=== PATIENT | male | born 2000 | race Caucasian/White ===

== ENCOUNTER 2019-02-10 19:41 | Emergency (ER) | payer MEDICAID, OTHER ==
[~2019-02-10] VITALS: Ht 195.6 cm; Wt 84.5 kg
[~2019-02-10 19:41] MED LIST: ARIP10TA33; DEXT10TA7; LORA10CA; SEROQUIL; [UNRECOGNIZED DRUG - OTHER]
[2019-02-10 19:49] VITALS: BP 124/75
[2019-02-10] MEDS ORDERED: DIAZEPAM 5 MG TABLET PO ONE (20:30)
[2019-02-10] MEDS ORDERED: KETOROLAC 30 MG/1 ML IM ONE (20:30)
[2019-02-10] MEDS ORDERED: KETOROLAC 30 MG/1 ML ONE (20:33)
[2019-02-10] MEDS ORDERED: DIAZEPAM 5 MG TABLET ONE (20:33)
== END 2019-02-10 21:04 | disposition home or self-care (01) ==
LOC: ED 20:58
DX: S39.012A Strain of muscle, fascia and tendon of lower back, initial encounter (principal); S30.0XXA Contusion of lower back and pelvis, initial encounter; S30.1XXA Contusion of abdominal wall, initial encounter; F17.200 Nicotine dependence, unspecified, uncomplicated; Y04.0XXA Assault by unarmed brawl or fight, initial encounter; Y93.89 Activity, other specified; Y92.89 Other specified places as the place of occurrence of the external cause; Y99.8 Other external cause status
CPT/HCPCS: 72110; 96372; 99283; J1885

== ENCOUNTER 2021-02-20 04:47 | Emergency (ER) | payer SELFPAY ==
[~2021-02-20] VITALS: Ht 195.6 cm; Wt 80.0 kg
[2021-02-20 04:51] VITALS: BP 128/78
--- NOTE | 2021-02-20 05:10 | NUR ---
PT PRESENTS TO THE ED WITH HEADACH, N/V/D, AND DRY COUGH. PT STATES HE HAD HIS SECOND COVID VACCINE 2 WEEKS AGO. AT THAT TIME THESE SYMPTOMS DEVELOPED ALONG WITH FEVERS. PT STATED HE TESTED POSITIVE FOR COVID ON 02/17/21.
[2021-02-20] MEDS ORDERED: PROMETHAZINE 25 MG/ML, 1ML IM ONE (06:00)
[2021-02-20] MEDS ORDERED: KETOROLAC 60 MG/2 ML IM ONE (06:00)
[2021-02-20] MEDS ORDERED: KETOROLAC 60 MG/2 ML ONE (06:06)
[2021-02-20] MEDS ORDERED: PROMETHAZINE 25 MG/ML, 1ML ONE (06:06)
--- NOTE | 2021-02-20 06:23 | NUR ---
PT RESTING ON GURNEY, DENIES NEEDS AT THIS TIME.
--- NOTE | 2021-02-20 06:28 | NUR ---
Patient given discharge instructions and they have confirmed that they understand the instructions. Patient ambulatory with steady gait.
== END 2021-02-20 06:30 | disposition home or self-care (01) ==
LOC: ED 06:18
DX: U07.1 COVID-19 (principal); J06.9 Acute upper respiratory infection, unspecified; R51.9 Headache, unspecified; R11.2 Nausea with vomiting, unspecified; F17.200 Nicotine dependence, unspecified, uncomplicated
CPT/HCPCS: 96372; 99284; J1885; J2550

== ENCOUNTER 2021-03-07 23:35 | Emergency (ER) | payer SELFPAY ==
[~2021-03-07] VITALS: Ht 195.6 cm; Wt 78.0 kg
--- NOTE | 2021-03-07 23:37 | NUR ---
NOT IN LOBBY WHEN CALLED
[2021-03-07 23:38] VITALS: BP 128/74
--- NOTE | 2021-03-08 01:18 | NUR ---
pt to room from lobby
[2021-03-08] MEDS ORDERED: HYDROcodone/APAP 5/325 TABLET PO ONE (01:30)
[2021-03-08] MEDS ORDERED: HYDROcodone/APAP 5/325 TABLET ONE (01:56)
== END 2021-03-08 02:18 | disposition home or self-care (01) ==
LOC: ED 23:40
DX: S62.616A Displaced fracture of proximal phalanx of right little finger, initial encounter for closed fracture (principal); F17.210 Nicotine dependence, cigarettes, uncomplicated; W22.8XXA Striking against or struck by other objects, initial encounter; Y93.89 Activity, other specified; Y92.410 Unspecified street and highway as the place of occurrence of the external cause; Y99.8 Other external cause status
CPT/HCPCS: 29125; 99283

== ENCOUNTER 2021-03-10 09:25 | Emergency (ER) | payer SELFPAY ==
[~2021-03-10] VITALS: Ht 195.6 cm; Wt 76.8 kg
[2021-03-10 09:27] VITALS: BP 130/70
== END 2021-03-10 10:52 | disposition home or self-care (01) ==
LOC: ED 10:00
DX: S62.646A Nondisplaced fracture of proximal phalanx of right little finger, initial encounter for closed fracture (principal); F17.200 Nicotine dependence, unspecified, uncomplicated; X58.XXXA Exposure to other specified factors, initial encounter; Y93.89 Activity, other specified; Y92.89 Other specified places as the place of occurrence of the external cause; Y99.8 Other external cause status
CPT/HCPCS: 29125; 99283